=== PATIENT | male | born 1970 | race Caucasian/White ===

== ENCOUNTER 2017-05-21 09:10 | Emergency (ER) | payer OTHER ==
[2017-05-21 09:20] VITALS: BP 149/71; PULSE 83; RESP 16; TEMP 97.9; O2SAT 97
--- NOTE | 2017-05-21 09:33 | EDPHY ---
H & P Time Seen by Provider: 05/21/17 09:21 HPI/ROS: CHIEF COMPLAINT: Left shoulder and hip pain HISTORY OF PRESENT ILLNESS: 47-year-old male presents with left shoulder and hip pain. Yesterday at work, he fell while standing on an uneven surface. He fell directly onto his left outstretched hand and left hip. He was able to get up with some assistance and did not hit his head. Since then, he has had increasing left shoulder pain and is using a lidocaine patch on the left posterior shoulder. He also has left hip pain, but is able to walk without trouble. REVIEW OF SYSTEMS: Constitutional: No weakness Eyes: No visual changes ENT: No facial/dental trauma Neck:No pain or injury Respiratory: No shortness of breath Cardiac: No chest pain Gastrointestinal: No abdominal pain, no vomiting Back:No pain or injury Genitourinary: No hematuria Skin: No lacerations Neurological: No headache, no dizziness Past Medical/Surgical History: Breast tumor Social History: No recent alcohol Smoking Status: Light smoker Physical Exam: General Appearance: Alert, no distress Head: Atraumatic Eyes: No conjunctival erythema ENT, Mouth: no bony tenderness Neck: Nontender, range of motion without pain Respiratory: No chest wall tenderness, lungs clear bilaterally Cardiovascular: Regular rate and rhythm Abdomen: Abdomen is soft and nontender Skin: abrasion left lateral hip, No lacerations, no abrasions Back: No midline T/L/S tenderness Extremities: left shoulder-tenderness over the scapula, shoulder range of motion with mild pain posteriorly, left hip-abrasion and ecchymosis laterally, range of motion without pain; left elbow-range of motion, including supination/ pronation without pain, left wrist and hand, nontender, range of motion without pain Neurological: alert and oriented, nonfocal, normal gait Psychiatric: Mood and affect normal Constitutional: Initial Vital Signs Temperature (C) 36.6 C 05/21/17 09:15 Heart Rate 83 05/21/17 09:15 Respiratory Rate 16 05/21/17 09:15 Blood Pressure 149/71 H 05/21/17 09:15 O2 Sat (%) 97 05/21/17 09:15 O2 Delivery Mode Room Air Allergies/Adverse Reactions: No Known Allergies Allergy (Unverified 12/25/14 17:50) Home Medications: Medication Instructions Recorded NK [No Known Home Meds] 09/05/13 Medical Decision Making - Diagnostics Imaging Results: Left shoulder x-ray: Negative ED Course/Re-evaluation: This patient presents after a fall yesterday. Fortunately there is no evidence of fracture or hemorrhage. He will continue using lidocaine patches. Ibuprofen and follow up instructions given. Departure - Departure Disposition: Home, Routine, Self-Care Clinical Impression: Left shoulder strain Qualifiers: Encounter type: initial encounter Qualified Code(s): S46.912A - Strain of unspecified muscle, fascia and tendon at shoulder and upper arm level, left arm , initial encounter Contusion of left hip Qualifiers: Encounter type: initial encounter Qualified Code(s): S70.02XA - Contusion of left hip, initial encounter Condition: Good Instructions: Rotator Cuff Injury (ED), Contusion in Adults (ED) Additional Instructions: Ibuprofen 600 mg 3 times daily while the pain persists. Referrals: Adele Coello MD [place] [place] - 5-7 days, if not improved
== END 2017-05-21 09:53 | disposition home or self-care (01) ==
LOC: CED 09:10
DX: S46.912A Strain of unspecified muscle, fascia and tendon at shoulder and upper arm level, left arm, initial encounter (principal); S70.02XA Contusion of left hip, initial encounter; F17.200 Nicotine dependence, unspecified, uncomplicated; W18.39XA Other fall on same level, initial encounter; Y92.69 Other specified industrial and construction area as the place of occurrence of the external cause; Y99.0 Civilian activity done for income or pay; Y93.89 Activity, other specified
CPT/HCPCS: 73030-PO

== ENCOUNTER 2017-05-28 17:19 | Emergency (ER) | payer OTHER | END 2017-05-28 17:30 | disposition left against medical advice (07) | LOC: CED 17:19 | DX: Z53.21 Procedure and treatment not carried out due to patient leaving prior to being seen by health care provider (principal) ==

== ENCOUNTER 2018-09-23 17:37 | Emergency (ER) | payer OTHER ==
--- NOTE | 2018-09-23 17:58 | EDPHY ---
H & P Stated Complaint: R knee pain after twisting at work today Time Seen by Provider: 09/23/18 17:49 HPI/ROS: CHIEF COMPLAINT: Knee injury at work HISTORY OF PRESENT ILLNESS: 48-year-old male reports that he was standing with his knees locked, twisted with the tray, and felt like he injured his right knee. He reports feeling like it was a clicking sensation. Did not hear a pop. This occurred several hours ago while at work. Patient has been icing the knee since that time. No prior history of injury to the knee. He did not fall. No other injuries. Otherwise well prior to the event. REVIEW OF SYSTEMS: A comprehensive 10 system review of systems was reviewed and is otherwise negative aside from elements mentioned in the history of present illness and medical decision making. PAST MEDICAL HISTORY: Patient denies. SOCIAL HISTORY: Smokes 4 cigarettes a day. No alcohol use. GENERAL APPEARANCE: Pleasant, conversant, no acute distress. Does report pain in the knee. FOCUSED EXAM OF right knee: No obvious deformity with the exception of mild swelling is present over the medial compartment. Mild tenderness along the medial joint line. Straight leg raise is intact. No bony tenderness of the patella. No laxity with varus and valgus stressing. Calf compartment are soft. Neurovascular exam: Good capillary refill, normal neurologic exam. - Personal History Current Tetanus/Diphtheria Vaccine: Unsure Current Tetanus Diphtheria and Acellular Pertussis (TDAP): Unsure - Medical/Surgical History Hx Asthma: No Hx Chronic Respiratory Disease: No Hx Diabetes: No Hx Cardiac Disease: No Hx Renal Disease: No Hx Cirrhosis: No Hx Alcoholism: No Hx HIV/AIDS: No Hx Splenectomy or Spleen Trauma: No Other PMH: chest/breast tumors removed and wrist surgery - Social History Smoking Status: Light smoker Constitutional: Initial Vital Signs Temperature (C) 36.8 C 09/23/18 17:44 Heart Rate 63 09/23/18 17:44 Respiratory Rate 16 09/23/18 17:44 Blood Pressure 131/84 H 09/23/18 17:44 O2 Sat (%) 96 09/23/18 17:44 O2 Delivery Mode Room Air Allergies/Adverse Reactions: No Known Allergies Allergy (Verified 09/23/18 17:46) Home Medications: Medication Instructions Recorded Tylenol PM (*) 09/23/18 oxyCODONE/APAP 5/325 [Percocet 1 tab PO QID PRN #10 tab 09/23/18 5/325 (*)] Medical Decision Making - Diagnostics Imaging Results: Imaging Impressions Knee X-Ray 09/23/18 17:58 Impression: There is no acute osseous abnormality. ED Course/Re-evaluation: 48-year-old male with a twisting injury to his right knee. Patient has pain along the medial compartment. Mild swelling. X-rays were negative for fracture. He was placed in a knee immobilizer and advised to follow up with workman's Comp next week and with Orthopedic surgery if he is not improving as expected. Please see the discharge instructions. Differential Diagnosis: Differential diagnosis for the patient's injury was considered including but not limited to contusion, abrasion, laceration, fracture, open fracture, or dislocation. Departure - Departure Disposition: Home, Routine, Self-Care Clinical Impression: Knee injury Right knee sprain Qualifiers: Encounter type: initial encounter Involved ligament of knee: unspecified ligament Qualified Code(s): S83.91XA - Sprain of unspecified site of right knee , initial encounter Condition: Good Instructions: Knee Sprain (ED), Knee Immobilizer (ED) Additional Instructions: Please follow up with workman's compensation within the next week for further evaluation of your knee. Wear knee immobilizer for comfort and stability. You do not need to wear it to bed. Please use ibuprofen for pain and anti inflammation. Your dose is 400-600 mg every 6-8 hours with food. You may take oxycodone if needed for more severe pain. Please ice the knee frequently, 20-30 minutes every 2-3 hours to help with pain and inflammation. Referrals: NONE *PRIMARY CARE P,. [Primary Care Provider] - As per Instructions Brian Edouard MD [Medical Doctor] - As per Instructions (Dr. Edouard is an orthopedic surgeon. Please follow up with him or with workman's Comp.) Stand Alone Forms: Work Limited Duty, Work Comp Follow Up Prescriptions: oxyCODONE/APAP 5/325 [Percocet 5/325 (*)] 1 tab PO QID PRN #10 tab PRN Reason: Pain
[2018-09-23 18:46] VITALS: BP 128/91
== END 2018-09-23 18:45 | disposition home or self-care (01) ==
LOC: CED 17:37
DX: S83.91XA Sprain of unspecified site of right knee, initial encounter (principal); W18.49XA Other slipping, tripping and stumbling without falling, initial encounter; Y99.0 Civilian activity done for income or pay
CPT/HCPCS: 73564-PO; 99283-ER; L1830-ER